=== PATIENT | male | born 1975 | race Caucasian/White ===

== ENCOUNTER 2017-03-02 13:29 | Emergency (ER) | payer MEDICAID, OTHER ==
[~2017-03-02] VITALS: Ht 167.6 cm; Wt 78.5 kg
[~2017-03-02 13:29] MED LIST: GUAI473L22 PO; TYL500 PO
[2017-03-02 13:31] VITALS: Ht 167.6 cm; Wt 78.5 kg
[2017-03-02] MEDS ORDERED: KETOROLAC 15 MG INJ IV STA (14:01)
[2017-03-02] MEDS ORDERED: SOD CHLORIDE 0.9% 1,000 ML IV STA (14:01)
[2017-03-02 14:21] LABS: BASOPHILS % 0.7 % (0.0-2.0); EOSINOPHILS # 0.1 10^3/ul (0.0-0.5); EOSINOPHILS % 1.1 % (0.0-7.0); HEMATOCRIT 45.5 % (42.0-52.0); HEMOGLOBIN 16.2 g/dl (14.0-18.0); LYMPHOCYTES # 1.7 10^3/ul (0.8-2.9); LYMPHOCYTES % 31.8 % (15.0-51.0); MEAN CORPUSCULAR HGB CONC 35.6 g/dl (32.0-37.0); MEAN CORPUSCULAR VOLUME 84.3 fl (82.0-101.0); MEAN PLATELET VOLUME 10.1 fl (7.4-10.4); MONOCYTE # 0.4 10^3/ul (0.3-0.9); MONOCYTES % 7.4 % (0.0-11.0); NEUTROPHIL # 3.2 10^3/ul (1.6-7.5); NEUTROPHILS % 58.8 % (39.0-77.0); PLATELET COUNT 250 10^3/UL (140-415); RED CELL DISTRIBUTION WIDTH 12.1 % (11.5-14.5); WHITE BLOOD COUNT 5.4 10^3/ul (4.8-10.8)
[2017-03-02 14:40] LABS: ALBUMIN 4.5 g/dl (3.3-4.9); ALBUMIN/GLOBULIN RATIO 1.21; BILIRUBIN,INDIRECT 0.5 mg/dl (0-1.1); BILIRUBIN,TOTAL 0.5 mg/dl (0.2-1.3); CALCIUM 9.5 mg/dl (8.4-10.2); CREATININE 0.79 mg/dl (0.61-1.24); POTASSIUM 4.3 mmol/L (3.5-5.1); TOTAL PROTEIN 8.2 g/dl (6.1-8.1)
--- NOTE | 2017-03-02 14:48 | RADRPT ---
PROCEDURE: US Abdomen. CLINICAL INDICATION: pain TECHNIQUE: Multiple real-time images were acquired of the patient's abdomen and retroperitoneum ut ilizing a high resolution transducer. COMPARISON: None FINDINGS: The liver demonstrates normal echogenicity. The liver is normal in size and no focal solid lesions are seen. The portal vein is patent with normal direction of flow. No intrahepatic biliary dilatat ion is seen. The liver measures 14.0 cm in length. A single 1.5 cm shadowing gallstone is seen in the gallbladder neck. There is no pericholecystic fl uid or gallbladder wall thickening. The gallbladder wall measures to 2.3 mm, within normal limits. T here is no pericholecystic fluid. Sonographic Velasquez's sign was not reported. The common bile duct m easures 5 mm in maximal dimension, within normal limits. The pancreas was obscured by overlying bowel gas and could not be evaluated. The spleen is normal in size. The spleen measures 9.6 cm in length. No free fluid is identified. Both kidneys are normal size and demonstrate normal renal cortical echogenicity. The right kidney m easures 10.0 cm. The left kidney measures 10.3 cm. No hydronephrosis or renal calculus is identified . The proximal aorta measures 1.8 cm in transverse dimension. IMPRESSION: Cholelithiasis without sonographic evidence of acute cholecystitis. The gallstone is located in the gallbladder neck and measures up to approximately 1.5 cm. RPTAT: PP Physician Charly Date Time Electronically viewed and signed by Physician Charly on 03/02/2017 14:48 SVETLANA/
[2017-03-02] MEDS ORDERED: HYDR-906 PO (15:14)
[2017-03-02] MEDS ORDERED: ONDA4TAB14 PO (15:14)
--- NOTE | 2017-03-02 16:08 | ERD ---
ER Documentation Chief Complaint Date/Time DATE: 03/02/17 TIME: 16:05 Chief Complaint Complains of right flank pain x 3 days HPI -year-old male presents to the emergency department complaining of right upper quadrant abdominal pain for the past 3 days. Patient states that the pain is around 8 out of 10 increased after food. Patient denies any nausea, vomiting, diarrhea, constipation. He denies any dysuria or hematuria. Patient states his last bowel movement was 3 hours prior to being seen. Patient denies any cough, shortness of breath or chest pain. ROS All systems reviewed and are negative except as per history of present illness. Medications Home Meds Active Scripts Ondansetron (Ondansetron Odt) 4 Mg Tab.rapdis, 4 MG PO Q6H Y for NAUSEA AND/OR VOMITING, #20 TAB Prov:MIRACLE CORRALES PA-C 03/02/17 Hydrocodone/Acetaminophen ([place] 5-325 Tablet) 1 Each Tablet, 1 TAB PO Q6H Y for PAIN, #20 TAB Prov:MIRACLE CORRALES PA-C 03/02/17 Guaifenesin-Codeine Phosphate* (Guaifenesin* AC Cough Syrup) 473 Ml Liquid, 10 ML PO Q4H Y for COUGH, #240 ML Prov:SEDRICK BELCHER NP 08/13/15 Acetaminophen* (Tylenol*) 500 Mg Tab, 500 MG PO Q4H Y for FEVER, #30 TAB Prov:SEDRICK BELCHER NP 08/13/15 Allergies Allergies: Coded Allergies: No Known Allergy (Unverified , 03/02/17) PMhx/Soc Medical and Surgical Hx: pt denies Medical Hx, pt denies Surgical Hx History of Surgery: No Anesthesia Reaction: No Hx Neurological Disorder: No Hx Respiratory Disorders: No Hx Cardiac Disorders: No Hx Psychiatric Problems: No Hx Miscellaneous Medical Probl: No Hx Alcohol Use: No Hx Substance Use: No Hx Tobacco Use: No Smoking Status: Never smoker Physical Exam Vitals Vital Signs Date Time Temp Pulse Resp B/P Pulse Ox O2 Delivery O2 Flow Rate FiO2 03/02/17 13:31 98.3 69 20 125/72 95 Physical Exam GENERAL: well-developed/well-nourished, in no apparent distress, non-toxic appearing HENT: NC/AT, moist mucous membranes EYES: Conjunctiva normal NECK: Supple, no lymphadenopathy PULM: CTA bilaterally, no rales, rhonchi, or wheezing heard CV: Normal S1S2, RRR, good capillary refill GI: Soft, non-distended, tender to palpation right upper quadrant abdominal Normal bowel sounds, no masses or organomegaly felt on exam No gross peritonitis, no bruits Negative Rovsing, negative Velasquez, negative McBurney's point, Negative CVAT BACK: No masses EXT: No clubbing, cyanosis, or edema NEURO: Alert and Orientated SKIN: Intact, normal turgor PSYCH: Normal mood and mentation Result Diagram: 03/02/17 1400 03/02/17 1400 Results 24 hrs Laboratory Tests Test 03/02/17 14:00 White Blood Count 5.410^3/ul Red Blood Count 5.4010^6/ul Hemoglobin 16.2g/dl Hematocrit 45.5% Mean Corpuscular Volume 84.3fl Mean Corpuscular Hemoglobin 30.0pg Mean Corpuscular Hemoglobin Concent 35.6g/dl Red Cell Distribution Width 12.1% Platelet Count 69592^3/UL Mean Platelet Volume 10.1fl Neutrophils % 58.8% Lymphocytes % 31.8% Monocytes % 7.4% Eosinophils % 1.1% Basophils % 0.7% Nucleated Red Blood Cells % 0.0/100WBC Neutrophils # 3.210^3/ul Lymphocytes # 1.710^3/ul Monocytes # 0.410^3/ul Eosinophils # 0.110^3/ul Basophils # 0.010^3/ul Nucleated Red Blood Cells # 0.010^3/ul Sodium Level 145mmol/L Potassium Level 4.3mmol/L Chloride Level 102mmol/L Carbon Dioxide Level 28mmol/L Anion Gap 19 Blood Urea Nitrogen 13mg/dl Creatinine 0.79mg/dl Glucose Level 104mg/dl Calcium Level 9.5mg/dl Total Bilirubin 0.5mg/dl Direct Bilirubin 0.00mg/dl Indirect Bilirubin 0.5mg/dl Aspartate Amino Transf (AST/SGOT) 24IU/L Alanine Aminotransferase (ALT/SGPT) 31IU/L Alkaline Phosphatase 83IU/L Total Protein 8.2g/dl Albumin 4.5g/dl Globulin 3.70g/dl Albumin/Globulin Ratio 1.21 Lipase 38U/L Current Medications Medications (Trade) Dose Ordered Sig/Janessa Route PRN Reason Start Time Stop Time Status Last Admin Dose Admin Sodium Chloride (NS) 1,000 ml @ 1,000 mls/hr Q1H STAT IV 03/02/17 14:01 03/02/17 15:13 DC Ketorolac Tromethamine (Toradol) 15 mg ONCE STAT IV 03/02/17 14:01 03/02/17 15:13 DC Procedures/MDM This is a 41-year-old male presenting to the emergency department complaining of right upper quadrant abdominal pain which is likely due to cholelithiasis. [I doubt patient has sepsis, choledocholithiasis, cholecystitis or cholangitis, pancreatitis or other acute abdomen conditions due to physical examination and diagnostic testing. Patient appears well and nontoxic appearing with stable vital signs. Diagnostic testing and instructions were given to patient. Pain control and antiemetic prescriptions were provided for outpatient self-care. Discussed with patient to follow-up with primary care for GI referral. Precautions were given to return to the ER for fever, intractable pain, increased vomiting, and other worsening signs and symptoms. Patient expressed agreement and understanding of this plan.] Departure Diagnosis: Primary Impression: Cholelithiasis Condition: Stable Patient Instructions: Gallstones Referrals: COMMUNITY CLINICS YOU HAVE RECEIVED A MEDICAL SCREENING EXAM AND THE RESULTS INDICATE THAT YOU DO NOT HAVE A CONDITION THAT REQUIRES URGENT TREATMENT IN THE EMERGENCY DEPARTMENT. FURTHER EVALUATION AND TREATMENT OF YOUR CONDITION CAN WAIT UNTIL YOU ARE SEEN IN YOUR DOCTORS OFFICE WITHIN THE NEXT 1-2 DAYS. IT IS YOUR RESPONSIBILITY TO MAKE AN APPOINTMENT FOR FOLOW-UP CARE. IF YOU HAVE A PRIMARY DOCTOR --you should call your primary doctor and schedule an appointment IF YOU DO NOT HAVE A PRIMARY DOCTOR YOU CAN CALL OUR PHYSICIAN REFERRAL HOTLINE AT IF YOU CAN NOT AFFORD TO SEE A PHYSICIAN YOU CAN CHOSE FROM THE FOLLOWING [facility] [address] [facility] [address] [facility] [address] [facility] [address] [facility] [address] [facility] [address] Additional Instructions: Visite a fonseca mdico maana para un EXAMEN.Regrese a estas instalaciones si no se mejora jamia esperbamos o jamia le dijimos. [place] toda la medicina ada y jamia se le indic. Regrese a estas instalaciones si no se mejora jamia esperbamos o jamia le dijimos. MIRACLE CORRALES PA-C Mar 02, 2017 16:08
== END 2017-03-02 15:30 | disposition home or self-care (01) ==
LOC: FTE 13:29
DX: K80.20 Calculus of gallbladder without cholecystitis without obstruction (principal)
CPT/HCPCS: 76700; 80053; 83690; 85025; Z7502; J7030

== ENCOUNTER 2017-06-20 13:10 | Emergency (ER) | payer OTHER ==
[~2017-06-20] VITALS: Ht 165.1 cm; Wt 78.1 kg
[~2017-06-20 13:10] MED LIST changes: +HYDR-906 PO; +ONDA4TAB14 PO
[2017-06-20 13:11] VITALS: Ht 165.1 cm; Wt 78.1 kg
[2017-06-20] MEDS ORDERED: PRED20TA PO (14:18)
--- NOTE | 2017-06-20 14:21 | ERD ---
ER Documentation Chief Complaint Chief Complaint cough with throat pain x 2 weeks HPI Patient is a 42-year-old male whose states he has had cough and sore throat for over 2 weeks. Also admits to runny nose. His symptoms are worse at night. He has been taking NyQuil, drinking tea, and sometimes he puts Vicks on his chest and they help temporarily but then the symptoms come back. His symptoms are worse at night. No nausea or vomiting or diarrhea. He is tolerating oral intake. No chest pain or shortness of breath. ROS All systems reviewed and are negative except as per history of present illness. Medications Home Meds Active Scripts Prednisone* (Prednisone*) 20 Mg Tab, 40 MG PO DAILY for 4 Days, TAB Prov:VLADISLAV CRISTINA PA-C 06/20/17 Ondansetron (Ondansetron Odt) 4 Mg Tab.rapdis, 4 MG PO Q6H Y for NAUSEA AND/OR VOMITING, #20 TAB Prov:MIRACLE CORRALES PA-C 03/02/17 Hydrocodone/Acetaminophen ([place] 5-325 Tablet) 1 Each Tablet, 1 TAB PO Q6H Y for PAIN, #20 TAB Prov:MIRACLE CORRALES PA-C 03/02/17 Guaifenesin-Codeine Phosphate* (Guaifenesin* AC Cough Syrup) 473 Ml Liquid, 10 ML PO Q4H Y for COUGH, #240 ML Prov:SEDRICK BELCHER NP 08/13/15 Acetaminophen* (Tylenol*) 500 Mg Tab, 500 MG PO Q4H Y for FEVER, #30 TAB Prov:SEDRICK BELCHER NP 08/13/15 Allergies Allergies: Coded Allergies: No Known Allergy (Unverified , 06/20/17) PMhx/Soc Medical and Surgical Hx: pt denies Medical Hx, pt denies Surgical Hx History of Surgery: No Anesthesia Reaction: No Hx Neurological Disorder: No Hx Respiratory Disorders: No Hx Cardiac Disorders: No Hx Psychiatric Problems: No Hx Miscellaneous Medical Probl: No Hx Alcohol Use: No Hx Substance Use: No Hx Tobacco Use: No Smoking Status: Never smoker FmHx Family History: No diabetes Physical Exam Vitals Vital Signs Date Time Temp Pulse Resp B/P Pulse Ox O2 Delivery O2 Flow Rate FiO2 06/20/17 13:11 97.0 77 19 128/72 97 Physical Exam INITIAL VITAL SIGNS: Reviewed by me GENERAL: Awake, alert and oriented x 4, well appearing, nontoxic, speaking in full sentences. No acute distress HEAD: Atraumatic NECK: Supple. No masses. Full range of motion. No meningismus. No midline tenderness. EYES: EOMI. PERRL. THROAT: No tonilar erythema or edema. No exudates. Uvula midline. No kissing tonsils. RESPIRATORY: Clear to auscultation bilaterally. Symmetric chest wall rise. No wheezing or rales. No accessory muscle use. CV: Regular rate and rhythm. No murmurs, rubs, or gallops. ABDOMEN: Soft, non-distended. Nontender. Negative Clarkson. Negative McBurneys point tenderness. No CVA tenderness bilaterally. No guarding. No rebound. Procedures/MDM Patient presents with URI. Symptoms have been going on for 2 weeks and he is already tried multiple [id number] medications. I doubt he has pneumonia or any other emergent cause of his symptoms. Exam is normal he is well- appearing with normal vital signs. He was given prescription for short course of prednisone. Patient counseled regarding my diagnostic impression and care plan. Prior to discharge all questions answered. Pt agrees with treatment plan and understands strict return precautions. Pt is instructed to follow up with primary care provider within 24-48 hours. Precautionary instructions provided including instructions to return to the ER if not improving or for any worsening or changing symptoms or concerns. Departure Diagnosis: Primary Impression: URI (upper respiratory infection) Condition: Stable Patient Instructions: Preventing Common Respiratory Infections Additional Instructions: Call your primary care doctor TOMORROW for an appointment during the next 1-2 days.See the doctor sooner or return here if your condition worsens before your appointment time. VLADISLAV CRISTINA PA-C Jun 20, 2017 14:21
== END 2017-06-20 14:33 | disposition home or self-care (01) ==
LOC: FTE 13:10
DX: J06.9 Acute upper respiratory infection, unspecified (principal)
CPT/HCPCS: 99283